=== PATIENT | female | born 1950 | race Caucasian/White ===

== ENCOUNTER → 2019-03-05 07:35 | Day surgery (SDC) | payer MEDICARE ==
[~2019-03-05 07:35] MED LIST: Acetaminophen TAB* 325 MG ONE; Acetaminophen TAB* 325 MG PO ONE; Buffered Lidocaine 1% SYRIN* 1 ML/SYRINGE INTRADERM ONE; Bupivacaine 0.5%* 50 ML VIAL ONE; Dexamethasone IV* 4 MG/ML 1 ML (4 MG) ONE; Famotidine IV* 10 MG/ML 2 ML (20 mg) ONE; HYDROcodone/ACETAMIN 5-325 MG* 1 TAB ONE; HYDROcodone/ACETAMIN 5-325 MG* 1 TAB PO PRN; Ketorolac INJ* 30 MG/ML 1 ML VIAL ONE; Lactated Ringers 1000 ML Bag* 1,000 ML IV SCH; Lidocaine 2% PF * 5 ML VIAL ONE; Lidocaine 2% PF* 10 ML AMP ONE; Midazolam* 1 MG/ML 2 ML VIAL (2 MG) ONE; Naloxone* 0.4 MG/ML 1 ML VIAL IV PRN; Ondansetron INJ* 2 MG/ML VIAL IV PRN; Propofol* 10 MG/ML 20 ML BTL ONE; ceFAZolin 2 GM in NS PREMIX(*) 2 GM/100 ML BAG IVPB ONE; diPHENhydraMINE IV* 50 MG/ML 1 ml VIAL (BENADRYL) IV PRN; fentaNYL* 50 MCG/ML 2 ML VIAL (100 MCG VIAL) ONE
[2019-03-05] MEDS: fentaNYL* 50 MCG/ML 2 ML VIAL (100 MCG VIAL) IV PRN ×3 (11:48→12:30)
[2019-03-05 12:47] VITALS: BP 126/80
--- NOTE | 2019-03-05 14:04 | OP ---
DATE OF OPERATION: 03/05/19 - [facility] DATE OF : 48 SURGEON: Dima Ramirez MD. DIRECTOR SPORTS: Wilma Marquez PA-C. 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 OPERATIVE PROCEDURE: Excision of neuroma, right forefoot. DESCRIPTION OF PROCEDURE: The patient was taken to the operating room where a longitudinal incision was made between the second and third metatarsal heads, right foot. We incised down through the soft tissue, divided the transverse metatarsal ligament under direct vision, and identified the bulging bulb of the interdigital neuroma in the webspace distally. We resected this by dividing the distal branches, pulling this vertically or superficially up through the wound, and dissecting proximally well within the metatarsus to divide the stump proximally. The soft tissues were then irrigated and closed with some superficial Monocryl and interrupted nylon for the skin and a compression dressing applied. [id number] #: [id number] MTDD
== END | disposition home or self-care (01) ==
LOC: OR 07:35
PROVIDERS: ATTEND Orthopaedic Surgery
DX: G57.61 Lesion of plantar nerve, right lower limb (principal); J45.909 Unspecified asthma, uncomplicated; Z87.891 Personal history of nicotine dependence; E03.9 Hypothyroidism, unspecified; M79.7 Fibromyalgia
CPT/HCPCS: 88304; A9270-GY; J0690; J1100; J1885; J2001; J2250; J2704; J3010; J3490